=== PATIENT | female | born 1990 | race Caucasian/White ===

== ENCOUNTER 2018-04-22 17:18 | Inpatient (IN) | payer OTHER ==
[2018-04-22 20:02] LABS: ADD UMIC YES; UR ASCORBIC ACID NEGATIVE (NEGATIVE); UR BILIRUBIN (Dip) NEGATIVE (NEGATIVE); UR BLOOD (Dip) NEGATIVE (NEGATIVE); UR CLARITY SLIGHTLY CLOUDY (CLEAR); UR COLOR STRAW (YELLOW); UR GLUCOSE (Dip) NEGATIVE (NEGATIVE); UR KETONES (Dip) NEGATIVE (NEGATIVE); UR LEUKOCYTE ESTERASE (Dip) TRACE Leu/ul (NEGATIVE); UR NITRITE (Dip) NEGATIVE (NEGATIVE); UR RBC 0 /HPF (0-5); UR SPECIFIC GRAVITY (Dip) 1.005 (1.003-1.030); UR SQUAMOUS EPITHELIAL CELL FEW /HPF (FEW); UR TOTAL PROTEIN (Dip) NEGATIVE (NEGATIVE); UR UROBILINOGEN (Dip) NEGATIVE (NEGATIVE); UR WBC 3 /HPF (0-5)
[2018-04-22 20:36] LABS: ADD MAN DIFF? NO
[2018-04-22 20:39] LABS: WHITE BLOOD COUNT 6.7 10^3/ul (4.8-10.8)
[2018-04-22 20:39] LABS: BASOPHILS % 0.1 % (0.0-2.0); EOSINOPHILS % 0.6 % (0.0-7.0); HEMATOCRIT 34.2 % (37.0-47.0); HEMOGLOBIN 11.8 g/dl (12.0-16.0); LYMPHOCYTES # 1.7 10^3/ul (0.8-2.9); LYMPHOCYTES % 25.3 % (15.0-51.0); MEAN CORPUSCULAR HEMOGLOBIN 30.3 pg (29.0-33.0); MEAN CORPUSCULAR HGB CONC 34.5 g/dl (32.0-37.0); MEAN CORPUSCULAR VOLUME 87.9 fl (82.0-101.0); MEAN PLATELET VOLUME 12.3 fl (7.4-10.4); MONOCYTE # 0.7 10^3/ul (0.3-0.9); MONOCYTES % 9.8 % (0.0-11.0); NEUTROPHIL # 4.3 10^3/ul (1.6-7.5); NEUTROPHILS % 63.6 % (39.0-77.0); PLATELET COUNT 138 10^3/UL (140-415); RED BLOOD COUNT 3.89 10^6/ul (4.20-5.40); RED CELL DISTRIBUTION WIDTH 13.4 % (11.5-14.5)
[2018-04-22 20:59] LABS: ALANINE AMINOTRANSFERASE 8 IU/L (13-69); ALBUMIN 3.8 g/dl (3.3-4.9); ALBUMIN/GLOBULIN RATIO 1.22; ALKALINE PHOSPHATASE 131 IU/L (42-121); ANION GAP 10 (8-16); ASPARTATE AMINO TRANSFERASE 19 IU/L (15-46); BILIRUBIN,INDIRECT 0.3 mg/dl (0-1.1); BILIRUBIN,TOTAL 0.3 mg/dl (0.2-1.3); BLOOD UREA NITROGEN 11 mg/dl (7-20); CALCIUM 9.4 mg/dl (8.4-10.2); CARBON DIOXIDE 20 mmol/L (21-31); CHLORIDE 106 mmol/L (97-110); CREATININE 0.47 mg/dl (0.44-1.00); GLUCOSE 96 mg/dl (70-220); POTASSIUM 3.7 mmol/L (3.5-5.1); SODIUM 132 mmol/L (135-144); TOTAL PROTEIN 6.9 g/dl (6.1-8.1); URIC ACID 5.5 mg/dl (3.1-7.9)
[2018-04-22] MEDS ORDERED: LACTATED RINGER'S 1,000 ML IV (22:37)
[2018-04-22] MEDS ORDERED: OXYTOCIN 30 UNITS/LR 500 ML IV (23:00)
[2018-04-22] MEDS ORDERED: CARBOPROST 250 MCG INJ IM (23:00)
[2018-04-22] MEDS ORDERED: BUTORPHANOL 2 MG INJ IV (23:00)
[2018-04-22] MEDS ORDERED: LIDOCAINE 1% (MPF) 30 ML INJ INJ (23:00)
[2018-04-22] MEDS ORDERED: IBUPROFEN 600 MG TAB PO (23:00)
[2018-04-22] MEDS ORDERED: METHYLERGONOVINE 0.2 MG INJ IM (23:00)
[2018-04-22 23:26] LABS: INR 0.97; PARTIAL THROMBOPLASTIN TIME 26.4 Sec (25.0-35.0)
[2018-04-23] MEDS: LACTATED RINGER'S 1,000 ML IV* ×5 (00:47→23:15)
[2018-04-23] MEDS: MISOPROSTOL 25 MCG CAPSULE PO ×4 (02:57→20:14)
[2018-04-23 07:19] LABS: HEPATITIS B SURFACE ANTIGEN NEGATIVE (NEGATIVE)
[2018-04-23 14:57] LABS: RAPID PLASMA REAGIN NONREACTIVE (NR)
[2018-04-24] MEDS: OXYTOCIN 30 UNITS/LR 500 ML IV ×3 (01:11→21:44)
[2018-04-24] MEDS: LACTATED RINGER'S 1,000 ML IV* ×5 (04:54→21:55)
[2018-04-24] MEDS: MISOPROSTOL 25 MCG CAPSULE PO ×2 (06:00)
[2018-04-24] MEDS: LEVOTHYROXINE 112 MCG TAB PO (06:33)
[2018-04-24] MEDS: oxyCODONE 5 MG TAB PO (09:07)
[2018-04-24] MEDS ORDERED: FENTAnyl 2MCG/ML-ROPIV 0.2% 100 ML (16:27)
[2018-04-24] MEDS ORDERED: DIPHENHYDRAMINE 50 MG INJ IV ×2 (17:00→22:00)
[2018-04-24] MEDS ORDERED: NALOXONE (0.4 MG/ML) INJ IV (17:00)
[2018-04-24] MEDS ORDERED: FENTAnyl 2MCG/ML-ROPIV 0.2% 100 ML BAG EPI (17:00)
[2018-04-24] MEDS ORDERED: ONDANSETRON 4 MG INJ IV ×2 (17:00→22:00)
[2018-04-24] MEDS: MISOPROSTOL 200 MCG TAB PR (21:03)
[2018-04-24] MEDS: DEXTROSE 5%-LR 1,000 ML IV (21:55)
[2018-04-24] MEDS ORDERED: METHYLERGONOVINE 0.2 MG INJ IM (22:00)
[2018-04-24] MEDS ORDERED: CARBOPROST 250 MCG INJ IM (22:00)
[2018-04-24] MEDS ORDERED: ZOLPIDEM 5 MG TAB PO (22:00)
[2018-04-24] MEDS ORDERED: OXYTOCIN 30 UNITS/LR 500 ML IV (22:00)
[2018-04-24] MEDS ORDERED: MISOPROSTOL 200 MCG TAB PR (22:00)
[2018-04-25] MEDS: IBUPROFEN 600 MG TAB PO ×4 (00:14→18:13)
[2018-04-25] MEDS: LANOLIN 7 GM TUBE TOP (00:14)
[2018-04-25] MEDS: DIBUCAINE 1% 30 GM OINT PR (00:14)
[2018-04-25] MEDS: BENZOCAINE 20% 56 ML SPRAY TOP (00:14)
[2018-04-25] MEDS: WITCH HAZEL/GLYCERIN PAD PR (00:14)
[2018-04-25] MEDS: LACTATED RINGER'S 1,000 ML IV* ×2 (01:55→13:55)
[2018-04-25] MEDS: DEXTROSE 5%-LR 1,000 ML IV ×2 (05:55→13:55)
[2018-04-25 08:17] LABS: ADD MAN DIFF? NO
[2018-04-25 08:18] LABS: BASOPHILS % 0.2 % (0.0-2.0); EOSINOPHILS % 0.2 % (0.0-7.0); HEMATOCRIT 27.3 % (37.0-47.0); HEMOGLOBIN 9.3 g/dl (12.0-16.0); LYMPHOCYTES # 1.7 10^3/ul (0.8-2.9); LYMPHOCYTES % 14.4 % (15.0-51.0); MEAN CORPUSCULAR HEMOGLOBIN 29.5 pg (29.0-33.0); MEAN CORPUSCULAR HGB CONC 34.1 g/dl (32.0-37.0); MEAN CORPUSCULAR VOLUME 86.7 fl (82.0-101.0); MEAN PLATELET VOLUME 12.4 fl (7.4-10.4); MONOCYTE # 1.5 10^3/ul (0.3-0.9); MONOCYTES % 12.2 % (0.0-11.0); NEUTROPHIL # 8.8 10^3/ul (1.6-7.5); NEUTROPHILS % 72.7 % (39.0-77.0); PLATELET COUNT 115 10^3/UL (140-415); RED BLOOD COUNT 3.15 10^6/ul (4.20-5.40); RED CELL DISTRIBUTION WIDTH 13.6 % (11.5-14.5)
[2018-04-25 08:18] LABS: WHITE BLOOD COUNT 12.1 10^3/ul (4.8-10.8)
[2018-04-25] MEDS: MAGNESIUM HYDROXIDE 30ML CUP PO ×2 (08:22→21:42)
[2018-04-26] MEDS: LEVOTHYROXINE 112 MCG TAB PO (05:52)
[2018-04-26] MEDS: IBUPROFEN 600 MG TAB PO ×3 (05:52→13:21)
[2018-04-26] MEDS: SENNA/DOCUSATE NA (8.6MG/50MG) TAB PO (09:25)
[2018-04-26] MEDS: MAGNESIUM HYDROXIDE 30ML CUP PO (09:25)
[2018-04-26] MEDS: MEASLES,MUMPS,RUBELLA VACCINE INJ SC* (09:25)
[2018-04-26] MEDS: DIPHTH/TET/ACEL PERTUSS (ADULT) 0.5 ML VIAL IM* (14:02)
== END 2018-04-26 17:40 | disposition home or self-care (01) | DRG 775 ==
LOC: OBT 17:18 → L-D 04-23 14:37 → PP1 04-24 23:14 → L-D 17:19 → OBT 22:25 → L-D 22:25
PROC: 3E0P7VZ Introduction of Hormone into Female Reproductive, Via Natural or Artificial Opening (ICD-10-PCS; 2018-04-22)
PROC: 10E0XZZ Delivery of Products of Conception, External Approach (ICD-10-PCS; principal; 2018-04-24)
PROC: 0W8NXZZ Division of Female Perineum, External Approach (ICD-10-PCS; 2018-04-24)
PROC: 0KQM0ZZ Repair Perineum Muscle, Open Approach (ICD-10-PCS; 2018-04-24)
PROC: 3E0234Z Introduction of Serum, Toxoid and Vaccine into Muscle, Percutaneous Approach (ICD-10-PCS; 2018-04-26)
DX: O13.4 Gestational [pregnancy-induced] hypertension without significant proteinuria, complicating childbirth (principal); O99.284 Endocrine, nutritional and metabolic diseases complicating childbirth; E03.9 Hypothyroidism, unspecified; O71.4 Obstetric high vaginal laceration alone; Z37.0 Single live birth; Z3A.37 37 weeks gestation of pregnancy; Z23 Encounter for immunization
CPT/HCPCS: 36415; 62319; 76815; 76818; 80053; 81001; 84560; 85025; 85610; 85730; 86592; 86850; 86900; 86901; 87340; 90715; 99464